=== PATIENT | female | born 1980 | race Caucasian/White ===

== ENCOUNTER 2020-01-04 08:28 | Emergency (ER) | payer BC ==
[~2020-01-04] VITALS: Ht 162.6 cm; Wt 80.7 kg
[2020-01-04] MEDS ORDERED: KETOROLAC TROMETHAMINE 60 MG/2 ML VIAL IM ONE (09:15)
--- NOTE | 2020-01-04 10:17 | Diagnostic Imaging Report ---
History: Neck and arm pain Comparison studies: None Technique: Axial images were obtained through the cervical region. Coronal and sagittal images reconstructed from the axial data. Dose modulation, iterative reconstruction, and/or weight based adjustment of the mA/kV was utilized to reduce the radiation dose to as low as reasonably achievable. Intravenous contrast: None Findings: Atlantoaxial articulation: Intact Alignment: Straightening of the usual cervical lordotic curvature, possibly positional. Cervicomedullary junction: No abnormalities. Patent foramen magnum. Soft tissues: No gross abnormalities. Vertebrae: No fractures, neoplasm or infection. Degenerative changes: C2-C3: Patent canal and foramina. C3-C4: Mild facet arthrosis. Patent canal and foramina. C4-C5: Patent canal and foramina. C5-C6: Mildly degenerated disc. Small disc osteophyte complex indents the thecal sac and results in only mild canal canal stenosis. Bilateral uncovertebral arthrosis without significant foraminal stenosis. C6-C7: Mildly degenerated disc. Small disc osteophyte complex indents the thecal sac and results in only mild canal stenosis. Bilateral uncovertebral arthrosis mild foraminal stenosis on the left. C7-T1: Patent canal and foramina. IMPRESSION: 1. No acute osseous abnormalities. 2. Mildly degenerated C5-C6 and C6-C7 discs. 3. Mild degenerative foraminal stenosis on the left at C6-C7. Cannot exclude ligament, spinal cord and or vascular abnormalities on the basis of this examination. Signed by: Dr. Emanuel Rivas M.D. on 01/04/2020 10:13 AM
--- NOTE | 2020-01-04 10:22 | Diagnostic Imaging Report ---
EXAMINATION: SHOULDER RIGHT COMPLETE INDICATION: Shoulder pain COMPARISON: None FINDINGS: No acute fracture or dislocation. Alignment is anatomic. Soft tissues appear unremarkable. No substantial degenerative change. The visualized portions of the right lung are clear. IMPRESSION: No acute osseous injury. Signed by: Rose Wynne MD on 01/04/2020 10:18 AM
[2020-01-04] MEDS ORDERED: NAPROXEN250 MG PO (10:57)
[2020-01-04] MEDS ORDERED: ROBAXIN-750750 MG PO (10:57)
== END 2020-01-04 11:27 | disposition home or self-care (01) ==
LOC: ER 08:28
DX: M54.12 Radiculopathy, cervical region (principal); M25.511 Pain in right shoulder
CPT/HCPCS: 72125; 81025; 99284; J1885

== ENCOUNTER 2020-01-21 05:30 | Observation (INO) | payer BC, OTHER ==
[2020-01-19 12:02] LABS: BASOPHILS # (AUTO) 0.1 (0.0-0.1); BASOPHILS % 1.1 % (0.0-1.0); EOSINOPHILS # (AUTO) 0.2 (0.0-0.4); EOSINOPHILS % 2.6 % (0.0-6.0); HEMATOCRIT 39.8 % (34.2-44.1); HEMOGLOBIN 13.4 g/dL (12.0-16.0); LYMPHOCYTES # (AUTO) 2.3 (1.0-3.2); LYMPHOCYTES % 32.2 % (18.0-39.1); MEAN CORPUSCULAR HEMOGLOBIN 31.2 pg (28-32); MEAN CORPUSCULAR HGB CONC 33.7 g/dL (31-35); MEAN CORPUSCULAR VOLUME 92.6 fL (81-99); MONOCYTES # (AUTO) 0.6 (0.2-0.8); MONOCYTES % 8.3 % (4.4-11.3); NEUTROPHILS # (AUTO) 3.9 (2.1-6.9); NEUTROPHILS % 55.5 % (38.7-80.0); PLATELET COUNT 311 x10e3/uL (140-360); RED CELL DISTRIBUTION WIDTH 12.4 % (11.7-14.4)
--- NOTE | 2020-01-19 12:13 | Diagnostic Imaging Report ---
EXAM: CHEST 2 VIEWS DATE: 01/19/2020 11:30 AM INDICATION: Preoperative evaluation COMPARISON: None FINDINGS: The trachea is midline. The lungs are symmetrically expanded without evidence for large focal consolidation, pneumothorax, or significant pleural effusion. The cardiomediastinal silhouette and pulmonary vasculature are within normal limits. No acute osseous abnormality is identified. The surrounding soft tissues are unremarkable. IMPRESSION: No acute cardiopulmonary process identified. Signed by: Dr. Raymundo Holguin MD on 01/19/2020 12:10 PM
[2020-01-19 12:15] LABS: INR 0.87; PROTHROMBIN TIME 12.3 seconds (11.9-14.5)
[2020-01-19 12:16] LABS: PARTIAL THROMBOPLASTIN TIME 25.1 seconds (23.8-35.5)
[2020-01-19 12:20] LABS: ANION GAP 12.4 mmol/L (8-16); BLOOD UREA NITROGEN 16 mg/dL (7-26); BUN/CREATININE RATIO 22 (6-25); CALCIUM 9.4 mg/dL (8.4-10.2); CARBON DIOXIDE 26 mmol/L (22-29); CHLORIDE 105 mmol/L (98-107); CREATININE, SERUM 0.74 mg/dL (0.57-1.11); EST GLOMERULAR FILTRATION RATE > 60 ML/MIN (60-); GLUCOSE 84 mg/dL (74-118); POTASSIUM 4.4 mmol/L (3.5-5.1); SODIUM 139 mmol/L (136-145)
[~2020-01-21] VITALS: Ht 162.6 cm; Wt 83.0 kg
[~2020-01-21 05:30] MED LIST: NAPROXEN250 MG PO; ROBAXIN-750750 MG PO
--- OUTSIDE RECORDS SUMMARY | 2020-01-21 05:42 | XMS REPORT ---
Author Author [facility] t Organization [facility] Address Unknown Phone Unavailable Care Team Providers Care Maintenance Mechanic Name Role Phone NONSTAFF PP Unavailable SHARDA DAWKINS Unavailable Unavailable SANDHIR, AMBICA Unavailable Unavailable Payers Payer Name Policy Type Policy Number Effective Date Expiration D ate [employer] [place] Ppo [id number] Problems This patient has no known problems. Allergies, Adverse Reactions, Alerts This patient has no known allergies or adverse reactions. Medications Ordered Medication Name Filled Medication Name Start Date Stop Da te Current Medication? Ordering Clinician Indication Dosage Frequency Signature (SIG) Comments Components Methocarbamol (Robaxin-750) 750 Mg Tablet Methocarbamo l (Robaxin-750) 750 Mg Tablet 2020-01-04 00:00:00 Yes Ambica Sandhir Do 750 Every 8 Hours as needed for Muscle Spasms Naproxen 250 Mg Tablet Naproxen 250 Mg Tablet 2020-01-04 00:00:00 Yes Ambica Sandhir Do 250 Every 4 Hours azithromycin 1 gram oral packet 1 g PO x1 dose azithro mycin 1 gram oral packet 1 g PO x1 dose No azithromycin 1 gra m oral packet 1 g PO x1 dose Bactrim DS 800 mg-160 mg tablet Take 1 t ablet every 12 hours by oral route for 3 days. Bactrim DS 800 mg-160 mg tablet Take 1 t ablet every 12 hours by oral route for 3 days. No 1 Q12H Bactrim DS 8 00 mg-160 mg tablet Take 1 tablet every 12 hours by oral route for 3 days. fluconazole 150 mg tablet Take 150 mg tablet by mouth x1 dose fluconazole 150 mg tablet Take 150 mg tablet by mouth x1 dose No fluconazole 150 mg tablet Take 150 mg tablet by mouth x1 dose Vital Signs Vital Name Observation Time Observation Value Comments BP Diastolic 2019-08-10 00:00:00 70 mm[Hg] Height 2019-08-10 00:00:00 64 [in_i] BP Systolic 2019-08-10 00:00:00 105 mm[Hg] Body Weight 2019-08-10 00:00:00 179.6 [lb_av] Procedures and Interventions Procedure Date / Time Performed Performing Clinici an Computed tomography of cervical spine without contrast 01-03 00:00:00 SUDHAKAR RODRIGUEZ Caesarean Section 2008-09-23 00:00:00 Caesarean Section 2003-09-23 00:00:00 [employer] Surgery (Gynecology) 2001-09-23 00:00:00 Plan of Care Planned Activity Planned Date Comments Encounters Start Date/Time End Date/Time Encounter Type Admission Type Attendi [facility] Care Department Encounter ID 2020-01-04 08:28:00 2020-01-04 11:27:00 Departed Emergency Room 1 SUDHAKAR RODRIGUEZ [facility] [id number] 2019-08-10 00:00:00 2019-08-10 00:00:00 Clark Rodarte, PULMONARY DISEASE SPECIALIST : [address], [address] [address], Ph. [facility] [id number] Results Test Description Test Time Test Comments Text Results Atomic Results Result Comments CHEST 2 VIEWS 2020-01-19 12:09:00 [place] [address] Patient Name: NICOLE PEARCE MR #: [id number] : 1980 Age/Sex: 39/F Req #: [id number] Adm Physician: Ordered by: SHARDA DAWKINS MD Report #: [id number] Location: OR Room/Bed: Procedure: [id number] DX/CHEST 2 VIEWS Exam Date: 01/19/20 Exam Time: 1130 REPORT STATUS: Signed EXAM: CHEST 2 VIEWS DATE: 01/19/2020 11:30 AM INDICATION: Preoperative evaluation COMPARISON: None FINDINGS: The trachea is midline. The lungs are symmetrically expanded without evidence for large focal consolidation, pneumothorax, or significant pleural effusion. The cardiomediastinal silhouette and pulmonary vasculature are within normal limits. No acute osseous abnormality is identified. The surrounding soft tissues are unremarkable. IMPRESSION: No acute cardiopulmonary process identified. Signed by: Dr. Raymundo Holguin MD on 01/19/2020 12:10 PM Dictated By: RAYMUNDO HOLGUIN MD 1210 Transcribed By: GABRIELLA on 01/19/20 1210 COPY TO: SHARDA DAWKINS MD SHOULDER RIGHT COMPLETE 2020-01-04 10:18:00 [place] [address] Patient Name: NICOLE PEARCE MR #: [id number] : 1980 Age/Sex: 39/F Req #: [id number] Adm Physician: Ordered by: SUDHAKAR RODRIGUEZ DO Report #: [id number] Location: ER Room/Bed: Procedure: [id number] DX/SHOULDER RIGHT COMPLETE Exam Date: 01/04/20 Exam Time: 0950 REPORT STATUS: Signed EXAMINATION: SHOULDER RIGHT COMPLETE INDICATION: Shoulder pain COMPARISON: None FINDINGS: No acute fracture or dislocation. Alignment is anatomic. Soft tissues appear unremarkable. No substantial degenerative change. The visualized portions of the right lung are clear. IMPRESSION: No acute osseous injury. Signed by: Raeann Curiel MD on 01/04/2020 10:18 AM Dictated By: RAEANN CURIEL MD 1018 Transcribed By: GABRIELLA on 01/04/20 1018 COPY TO: SUDHAKAR RODRIGUEZ DO CT CERVICAL SPINE WO 2020-01-04 10:02:00 [place] [address] Patient Name: NICOLE PEARCE MR #: [id number] : 1980 Age/Sex: 39/F Req #: [id number] Adm Physician: Ordered by: SUDHAKAR RODRIGUEZ DO Report #: [id number] Location: ER Room/Bed: Procedure: [id number] CT/CT CERVICAL SPINE WO Exam Date: 01/04/20 Exam Time: 0930 REPORT STATUS: Signed History: Neck and arm pain Comparison studies: None Technique: Axial images were obtained through the cervical region. Coronal and sagittal images reconstructed from the axial data. Dose modulation, iterative reconstruction, and/or weight based adjustment of the mA/kV was utilized to reduce the radiation dose to as low as reasonably achievable. Intravenous contrast: None Findings: Atlantoaxial articulation: Intact Alignment: Straightening of the usual cervical lordotic curvature, possibly positional. Cervicomedullary junction: No abnormalities. Patent foramen magnum. Soft tissues: No gross abnormalities. Vertebrae: No fractures, neoplasm or infection. Degenerative changes: C2-C3: Patent canal and foramina. C3-C4: Mild facet arthrosis. Patent canal and foramina. C4-C5: Patent canal and foramina. C5-C6: Mildly degenerated disc. Small disc osteophyte complex indents the thecal sac and results in only mild canal canal stenosis. Bilateral uncovertebral arthrosis without significant foraminal stenosis. C6-C7: Mildly degenerated disc. Small disc osteophyte complex indents the thecal sac and results in only mild canal stenosis. Bilateral uncovertebral arthrosis mild foraminal stenosis on the left. C7-T1: Patent canal and foramina. IMPRESSION: 1. No acute osseous abnormalities. 2. Mildly degenerated C5-C6 and C6-C7 discs. 3. Mild degenerative foraminal stenosis on the left at C6-C7. Cannot exclude ligament, spinal cord and or vascular abnormalities on the basis of this examination. Signed by: Dr. Karissa Rivas M.D. on 01/04/2020 10:13 AM Dictated By: KARISSA RIVAS MD 1013 Transcribed By: GABRIELLA on 01/04/20 1013 COPY TO: SUDHAKAR RODRIGUEZ DO Urine Test 2020-01-04 09:39:00 Urine Test (test code = 2106-3) NEGATIVE NEGATI VE Urinalysis complete W Reflex Culture panel - [id number] 08:12:00* Test Item Value Reference Range Comments color (test code = color) yellow yellow appearance (test code = appearance) cloudy clear specific gravity (test code = specific gravity) 1.021 1.001-1.035 pH (test code = pH) 8.0 5.0-8.0 glucose (test code = glucose) negative negative bilirubin (test code = bilirubin) negative negative ketones (test code = ketones) 1+ negative occult blood (test code = occult blood) negative negative protein (test code = protein) negative negative nitrite (test code = nitrite) negative negative leukocyte esterase (test code = leukocyte esterase) 1+ negative WBC (test code = WBC) 0-5 < or = 5 RBC (test code = RBC) 0-2 < or = 2 squamous epithelial cells (test code = squamous epithelial c ells) 20-27 < or = 5 bacteria (test code = bacteria) none seen none seen hyaline cast (test code = hyaline cast) none seen none see n Bacteria identified in Urine by [id number] 08:12:00* Test Item Value Reference Range Comments reflexive urine culture (test code = reflexive urine c ulture) culture indicated - results to follow Bacteria identified in Urine by [id number] 08:12:00* Test Item Value Reference Range Comments culture, urine, routine (test code = culture, urine, routine) se e note Chlamydia trachomatis+Neisseria gonorrhoeae rRNA [Presence] in Urine by DNA prob [id number] 17:15:00* Test Item Value Reference Range Comments chlamydia trachomatis (urine) molecular assay (test code = chlamydia trachomatis (urine) molecular assay) detected neisseria gonorrhoeae (urine) molecular assay (test code = neisseria gonorrhoeae (urine) molecular assay) not detected Urinalysis macro (dipstick) panel - [id number] 16:42:00* Test Item Value Reference Range Comments Color Color (test code = Color Color) yellow Color Appearance (test code = Color Appearance) clear Color Glucose (test code = Color Glucose) negative Color Bilirubin (test code = Color Bilirubin) small Color Ketones (test code = Color Ketones) trace Color Specific [place] (test code = Color Specific [place]) 1.02 0 Color Blood (test code = Color Blood) trace Color PH (test code = Color PH) 8.5 Color Protein (test code = Color Protein) negative Color Urobilinogen (test code = Color Urobilinogen) 4 Color Nitrites (test code = Color Nitrites) negative Color Leukocytes (test code = Color Leukocytes) small
--- OUTSIDE RECORDS SUMMARY | 2020-01-21 05:42 | XMS REPORT | Encounter Summary ---
Author Organization Unknown Address [address] [place] [address] Phone [phone] Care Team Providers Care Silver Brazer Name Role Phone Dr. Ayana [facility] 3 [phone] Reason for Visit vaginal problem Instructions 1. Exposure to Chlamydia trachomatis azithromycin 1 gram oral packet 2. Exposure to blood and/or body fluid unlisted lab - HIV-1/2 Ag and abs scre en, 4TH gen. w/rflx (46961) RPR (rapid plasma reagin), quantitativ e, serum herpes simplex virus 2 Ab, IgG, QL, IA , serum or plasma hepatitis C virus RNA, quant, PCR, ser um or plasma HBsAg (hepatitis B surface Ag), confir mation, serum CT + NG RNA, urine 3. Urinary tract infectious disease Bactrim DS 800 mg-160 mg tablet urinalysis complete, reflex culture 4. Dysuria urinalysis, dipstick 5. Vaginal irritation fluconazole 150 mg tablet 6. Dyspareunia gynecology referral 7. Body mass index 30+ - obesity body mass index: care instructions learning about healthy weight Discussion Note: None recorded. Plan of Care Reminders Provider Appointments None recorded. Lab Unlisted Lab 08/10/2019 [facility] RPR (Rapid Plasma Reagin), Quantitative, Serum 1 10/10/2018 [facility] Herpes Simplex Virus 2 Ab, IgG, QL, IA, Serum or Plasma 08/10/2019 [facility] Hepatitis C Virus RNA, Quant, PCR, Serum or Plas ma 08/10/2019 [facility] HBsAg (Hepatitis B Surface Ag), Confirmation, Se rum 08/10/2019 [facility] CT + NG RNA, Urine 08/10/[address] [facility] Urinalysis, Dipstick 08/10/2019 [facility] Urinalysis Complete, Reflex Culture 08/10/2019 [facility] Referral Gynecology Referral 08/10/2019 [facility] Procedures None recorded. Surgeries None recorded. Imaging None recorded. Medications Name Start Date azithromycin 1 gram oral packet 1 g PO x1 dose Bactrim DS 800 mg-160 mg tablet Take 1 tablet every 12 hours by oral route for 3 days. fluconazole 150 mg tablet Take 150 mg tablet by mouth x1 dose Medications Administered None recorded. Vitals Height Weight BMI Blood Pressure 5 ft 4 in 179.6 lbs 30.8 kg/m2 105/70 mm[Hg] Results Lab Results Date Name Specimen Result Interpretation Description Value Range Status Address 08/10/2019 CT + NG RNA, Urine ABNORMAL Chlam ydia Trachomatis (Urine) Molecular Assay detected Final [facility] Laboratory: [address] Neisseria Gonorrhoeae (Urine) Molecul ar Assay not detected Final [facility] Laboratory: [address] 08/10/2019 Urinalysis Complete, Reflex Culture Normal Color yellow yellow Final [facility] Laboratory: [address] ABNORMAL Appearance cloudy clear Final [facility]: [address] Normal Specific [place] 1.021 1.001-1.035 Final [facility] Laboratory: [address] Normal Ph 8.0 5.0-8.0 Final [facility] Laboratory: [address] Normal Glucose negative negative Final [facility]: [address] Normal Bilirubin negative negative Final [facility] Laboratory: [address] ABNORMAL Ketones 1+ negative Final [facility]: [address] Normal Occult Blood negative negative Final [facility] Laboratory: [address] Normal Protein negative negative Final [facility]: [address] Normal Nitrite negative negative Final [facility] Laboratory: [address] ABNORMAL Leukocyte Esterase 1+ negative Final [facility] Laboratory: [address] Normal Wbc 0-5 /hpf < or = 5 /hpf Final [facility] Laboratory: [address] Normal Rbc 0-2 /hpf < or = 2 /hpf Final [facility] Laboratory: [address] [place] [address], [place] ABNORMAL Squamous Epithelial Cells 20-27 /h pf < or = 5 /hpf [facility] Laboratory: [address] Normal Bacteria none seen /hpf none seen /h pf Final [facility]: [address] Normal Hyaline Cast none seen /lpf none see n /lpf [facility] Laboratory: [address] [place] [address], [place] 08/10/2019 Culture, Urine Reflexive Uri ne Culture culture indicated - results to follow [facility]: [address] [place] [address], [place] 08/10/2019 Culture, Urine Culture, Urine, Routine see note [facility] Laboratory: [address] [place] [address], [place] 08/10/2019 Urinalysis, Dipstick Color Color yellow [facility]: [address], [place] Color Appearance clear [facility]: [address], [place] Color Glucose negative [facility]: [address], [place] Color Bilirubin small [facility] [address] [place] Color Ketones trace [facility] [address] [place] Color Specific [place] 1.020 [facility] [address] [place] Color Blood trace [facility] [address], [place] Color PH 8.5 [facility] [address] [place] Color Protein negative [facility] [address] [place] Color Urobilinogen 4 [facility] [address] [place] Color Nitrites negative [facility]: [address], [place] Color Leukocytes small [facility]: [address], [place] Allergies Code Code System Name Reaction Severity Status Onset NKDA Problems None recorded. Procedures Date Name Performed by 09/23/2008 Caesarean Section Information not avai lable 09/23/2003 Caesarean Section Information not avai lable 09/23/2001 [facility] Surgery (Gynecology) Information not available Vaccine List None recorded. Social History Tobacco Smoking Status Never Smoker Past Encounters 08/10/2019 Exposure to Chlamydia Trachomatis; Exposure to Blood And/or Body Fluid; Urinary Tract Infectious Disease; Dysuria; Vaginal Irritation; Dyspareunia; Body Mass Index 30+ - Obesity Clark Rodarte, [employer] SMITH: [address], [address], [place] [address], Ph. History of Present Illness Vaginal/Vulvar Problem Reported By: Patient HPI: Duration: present for >1 mon . Quality: itching, painful, tender, irritation, dry, multiple lesions/sores. Context: sexually active, new sexual partner, history of recurrent vaginal infections; IUD - Mirana (2nd one). Associated Symptoms: vaginal itching, vaginal irritation, vaginal pain, vulvar pain Sexually Transmitted Infecti on Reported By: Patient HPI: Severity: pain level 6/10. C ontext: last sexual activity:, last sexual partner: male partner. Modifying Factors: nothing gives relief. Associated Symptoms: dysuria, painful intercourse, pruritus, urethral discharge white, urethral itch, urge incontinence Note:Pt presents with reports of vaginal discharge, painful intercourse, and vaginal pain when urinating. Review of Systems:ROS as noted in the HPI Review of Systems None recorded. Physical Exam General Adult Exam (Female) Reported By: Patient Constitutional: General Appearance: healthy- appearing, well-nourished, well- developed. Level of Distress: NAD. Ambulation: ambulating normally Psychiatric: Insight: good judgement. Men rene Status: active and alert, normal mood, normal affect. Orientation: to time, to place, to person Head: Head: normocephalic, atrauma tic Eyes: Lids and Conjunctivae: non-i njected, no discharge, no pallor. Pupils: PERRLA. Sclerae: non-icteric ENMT: Ears: no lesions on external ear, EACs clear, TMs clear. Nose: no lesions on external nose, nares patent. Lips, Teeth, and Gums: no mouth or lip ulcers, normal dentition. Oropharynx: moist mucous membranes Neck: Neck: supple, trachea midlin e, no masses, FROM. Lymph Nodes: no cervical LAD, no supraclavicular LAD, no axillary LAD. Thyroid: no enlargement, non- tender, no nodules Lungs: Respiratory effort: no dyspn ea. Auscultation: breath sounds normal, good air movement, CTA except as noted Cardiovascular: Heart Auscultation: RRR, nor mal S1, normal S2, no murmurs, no rubs Abdomen: Bowel Sounds: normal. Inspec tion and Palpation: soft, non-distended, no tenderness, no rebound tenderness, no masses. Liver: non-tender. Spleen: non-tender Female : External genitalia: no lesio ns. Vagina: abnormal discharge, dry mucosa, tenderness. Cervix: cervical motion tenderness Skin: Inspection and palpation: no rash, no lesions, no abnormal nevi, good turgor
[2020-01-21] MEDS ORDERED: CEFAZOLIN SOD 1 GM/NS 50ML 100 ML IV ONE (06:02)
[2020-01-21] MEDS ORDERED: BACITRACIN 50,000 UNIT VIAL ONE (06:53)
[2020-01-21] MEDS ORDERED: THROMBIN FOR SOLN 5,000 UNIT VIAL ONE (06:53)
[2020-01-21] MEDS ORDERED: BUPIVACAINE 0.5%/EPI 30 ML SDV INJ ONE (06:53)
[2020-01-21] MEDS ORDERED: LIDOCAINE HCL (LTA) 4 ML SOLN ONE (07:25)
[2020-01-21] MEDS ORDERED: ACETAMINOPHEN 1000 MG/100 ML 100 ML IV ONE (07:25)
[2020-01-21] MEDS ORDERED: IBUPROFEN 800MG/ 200ML 200 ML IV ONE (07:25)
[2020-01-21] MEDS ORDERED: MORPHINE SULFATE INJ 4 MG/ML INJ 1ML IM PRN (09:15)
[2020-01-21] MEDS ORDERED: MAGNESIUM/ALUMINUM/SIMETHICONE 30 ML UDC PO PRN (09:15)
[2020-01-21] MEDS ORDERED: CARISOPRODOL 350 MG TAB PO PRN (09:15)
[2020-01-21] MEDS ORDERED: PROMETHAZINE HCL (IM) 25 MG/ML VIAL IM PRN (09:15)
[2020-01-21] MEDS ORDERED: ZOLPIDEM TARTRATE 5 MG TAB PO PRN (09:15)
[2020-01-21] MEDS ORDERED: ACETAMINOPHEN 325 MG TAB PO PRN (09:15)
[2020-01-21] MEDS ORDERED: CEPACOL SORE THROAT LOZENGES PO PRN (09:15)
[2020-01-21] MEDS ORDERED: FENTANYL CITRATE/PF 100MCG/2 ML INJ ONE ×2 (09:27→18:16)
[2020-01-21] MEDS ORDERED: HYDROMORPHONE 1MG/1ML INJ ONE (10:41)
--- NOTE | 2020-01-21 11:10 | NUR ---
received to rm 107 aaox3, pt in stable condition, denies pain at this time, dsg to cervical c/d/i, cervical hard collar in place, updated on poc voiced understanding, ivf infusing to l hand 20 g no ss of infiltration noted, no other co voiced call light in reach will continue to monitor
[2020-01-21 11:25] VITALS: BP 118/74
--- NOTE | 2020-01-21 12:25 | Operative Report ---
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 PROCEDURES: 1. C5-6 anterior cervical diskectomy and microsurgical osteophyte resection and allograft fusion, 40701. 2. C6-7 anterior cervical diskectomy and microsurgical osteophyte resection and allograft fusion, 36645. 3. Preparation of tricortical iliac crest allograft, 53693. 4. C5-C6-C7 anterior cervical plating with Synthes CSLP small stature plate, [id number]. ANESTHESIA: General. INDICATIONS: The patient is a 39-year-old woman, who presents with C5-6 right-sided disk herniation, superimposed on C5-6 and C6-7 spondylosis, symptomatic with intractable right C6 radiculopathy. She was taken to surgery for two-level anterior cervical decompression and fusion. PROCEDURE IN DETAIL: After induction of general anesthesia, the patient was placed on the operating table in supine position. The right side of the neck was prepped and draped in sterile fashion. The fluoroscopic C-arm was positioned in cross-table lateral orientation. A small transverse incision was created along the skin crease on the right side of neck, superimposed on the C6 vertebral body as determined by fluoroscopy. The platysma was divided in line with the incision. A subplatysmal dissection was carried out and avascular plane of dissection was developed medially to the sternocleidomastoid muscle and was followed medial to the carotid sheath to the anterior border of cervical spine. The deep cervical fascia was opened. The esophagus was retracted to the left. The attachments of longus colli muscles to the anterolateral aspects of vertebral bodies of C5, C6, and C7 were divided. The anterior longitudinal ligament was resected. [place] posts were inserted in C5 and C7. The [place] distractor was used to distract both disk spaces simultaneously. The anterior annulus of disk was incised with a #11 blade. The contents of both disks were thoroughly evacuated with angled curettes and pituitary rongeurs. The posterior osteophytes were meticulously drilled with a 2 mm cutting bur on a high-speed drill until they were completely removed. The posterior annulus of the disk, herniated disk material, and the posterior longitudinal ligament were resected layer by layer until the dura was fully exposed and decompressed. The medial aspects of the uncinate processes were resected bilaterally to further expose any compressed origins of the corresponding nerve roots. On the right side at C5-6, a large disk herniation was retrieved and removed from the right C6 neural foramen. Excellent decompression was thus achieved. The wound was copiously irrigated with bacitracin solution. Hemostasis was secured. The endplates were decorticated in preparation for fusion. Two pieces of tricortical iliac crest allograft were cut to the size and shapes of the disk spaces and were inserted into disk spaces under distraction and fluoroscopic guidance. The distraction was released and distraction posts were removed. A Synthes CSLP small stature anterior cervical plate measuring 32 mm was selected and was affixed to vertebral bodies of C5, C6, and C7 with three pairs of 14 x 4.35 mm screws. All screw holes were first drilled and tapped on the lateral fluoroscopic guidance. All screws were locked with the appropriate locking screws. An excellent construct was obtained. The wound was copiously irrigated with bacitracin solution. Meticulous hemostasis was secured. Retraction was removed. The platysma was closed with 3-0 Vicryl sutures. The skin was closed with 4-0 Monocryl sutures in subcuticular fashion. Steri-Strips and dressing were applied. The patient was awakened, extubated, and taken to postanesthesia care unit in stable condition. No intraoperative complications were encountered. Estimated blood loss was 30 mL. Josef Burks MD PP/DENISE /[id number]
[2020-01-21 13:23] VITALS: BP 118/74
[2020-01-21] MEDS: NAPROXEN 250 MG TAB PO SCH ×3 (14:00→22:00)
--- NOTE | 2020-01-21 14:34 | Diagnostic Imaging Report ---
OR Fluoroscopy: IMPRESSION: Fluoroscopy service provided in the OR. Interpretation not requested. Signed by: Rudy Ott MD on 01/21/2020 2:31 PM
[2020-01-21] MEDS: OXYCODONE/ACETAMINOPHEN 5-325 1 EACH TABLET PO PRN ×2 (14:54→19:44)
[2020-01-21] MEDS: LACTATED RINGER'S 1,000 ML IV SCH ×2 (14:54→17:35)
[2020-01-21] MEDS: CEFAZOLIN SOD 1 GM/NS 50ML 50 ML IV SCH ×2 (14:54→23:24)
[2020-01-21 16:34] VITALS: BP 113/58
[2020-01-21] MEDS ORDERED: LIDOCAINE HCL 2% JELLY 5 ML TUBE ONE (18:16)
[2020-01-21] MEDS ORDERED: LIDOCAINE HCL 2% LOCAL INJ 5 ML SDV VIAL INJ ONE (18:16)
[2020-01-21] MEDS ORDERED: PROPOFOL IV EMULSION 10 MG/ML 20 ML VIAL ONE (18:16)
[2020-01-21] MEDS ORDERED: ROCURONIUM BROMIDE 10 MG/ML 5ML VIAL IV ONE (18:16)
[2020-01-21] MEDS ORDERED: SEVOFLURANE INHAL SOLN 250 ML PEN BTL ONE (18:16)
[2020-01-21] MEDS ORDERED: DEXAMETHASONE SOD PHOS INJ 4 MG/ML VIAL ONE (18:16)
[2020-01-21] MEDS ORDERED: ONDANSETRON HCL INJ 2MG/ML 2ML 2 MG/ML VIAL ONE (18:16)
[2020-01-21] MEDS ORDERED: MIDAZOLAM HCL 2 MG/2 ML VIAL ONE (18:16)
[2020-01-21 19:40] VITALS: BP 113/58
--- NOTE | 2020-01-21 19:40 | NUR ---
PATIENT RESTING IN BED AOX3, NO SIGNS OF DISTRESS NOTED. IV FLUIDS ARE RUNNING AT ORDERED RATE AND PATIENT VOICES PAIN AT A LEVEL OF 7 AND WAS MEDICATED ORDERED. SCD'S ARE INTACT. BED IS IN LOWEST POSITION, BOTH SIDE RAILS ARE UP, CALL LIGHT IS WITHIN EASY REACH, WILL CONTINUE TO MONITOR.
[2020-01-21 20:00] VITALS: BP 109/69
[2020-01-21] MEDS: ONDANSETRON HCL INJ 2MG/ML 2ML 2 MG/ML VIAL IV PRN (23:24)
[2020-01-21] MEDS: HYDROMORPHONE 2MG/ML 2 MG/ML ML IV PRN (23:24)
[2020-01-22] VITALS: BP 101/56
[2020-01-22] MEDS: LACTATED RINGER'S 1,000 ML IV SCH (01:54)
[2020-01-22] MEDS: NAPROXEN 250 MG TAB PO SCH ×3 (02:00→10:25)
[2020-01-22 04:00] VITALS: BP 111/64
[2020-01-22] MEDS: HYDROMORPHONE 2MG/ML 2 MG/ML ML IV PRN (06:04)
[2020-01-22] MEDS: CEFAZOLIN SOD 1 GM/NS 50ML 50 ML IV SCH (06:04)
[2020-01-22] MEDS: ONDANSETRON HCL INJ 2MG/ML 2ML 2 MG/ML VIAL IV PRN ×2 (06:05→10:25)
--- NOTE | 2020-01-22 07:05 | Diagnostic Imaging Report ---
C-SPINE 2 VIEWS AP LATERAL - 2 views HISTORY: Pain. COMPARISON: None available. FINDINGS: Bones: The cervical spine is visualized from C1 to C7 on the lateral view. No acute displaced fracture. No significant listhesis. Anterior instrumented fusion from C5 to C7 via a plate and screw construct. The hardware appears intact. Joints: Mild multilevel disc space narrowing. Soft tissues: The soft tissues appear unremarkable. IMPRESSION: Lower cervical spine surgical change. No acute osseous abnormality. Signed by: Luis E Aguilar MD on 01/22/2020 7:01 AM
[2020-01-22 07:48] VITALS: BP 91/54
[2020-01-22 09:02] VITALS: BP 91/54
--- NOTE | 2020-01-22 09:35 | NUR ---
Pt felt "nauseous." Inspector Of Dredging provided hospitality and information on how to reach movie projectionist if needed. ALEC ARMENDARIZ Inspector Of Dredging Spiritual Care Department O: [phone]
[2020-01-22] MEDS: OXYCODONE/ACETAMINOPHEN 5-325 1 EACH TABLET PO PRN (10:20)
[2020-01-22] MEDS ORDERED: ULTRAM50 MG PO (11:06)
--- NOTE | 2020-01-22 11:40 | NUR ---
AAOX3. ACYANOTIC. RESTING IN BED AWAITING ON RIDE FROM HOSPITAL. PATIENT INSTRUCTED TO USE CALL LIGHT FOR ASSISTANCE WHEN LEARNING THAT HER RIDE IS OUTSIDE FRONT LOBBY. VERBALIZED UNDERSTANDING.
[2020-01-22 11:57] VITALS: BP 98/58
== END 2020-01-22 12:30 | disposition home or self-care (01) ==
LOC: OR 05:30 → PACU V 09:09 → MED/SURG 10:48
PROVIDERS: ADMIT Neurological Surgery; ATTEND Neurological Surgery
DX: M50.120 Mid-cervical disc disorder, unspecified level (principal)
CPT/HCPCS: 20931; 22551; 22552; 22845; 36415; 71046; 72040; 77003; 80048; 81025; 85025; 85610; 85730; 86850; 86900; 87635; 88304; 93005; C1713 ×4; C1763; G0378 ×2; J0131; J0690 ×2; J1100; J1170 ×3; J2001 ×2; J2250; J2405 ×2; J2704; J3010; J7121 ×2

== ENCOUNTER → 2020-02-18 | Outpatient (CLI) | payer BC ==
[~2020-02-18] MED LIST changes: +ULTRAM50 MG PO
--- NOTE | 2020-02-18 11:19 | Diagnostic Imaging Report ---
Radiographs of the cervical spine 4 views with flexion and extension HISTORY: Pain COMPARISON: 01/22/2020 FINDINGS: Bones: The cervical spine is visualized from C1 to C7 on the lateral view. No acute displaced fracture. No significant listhesis. No subluxation on the flexion or extension images. Anterior instrumented fusion from C5 to C7 via a plate and screw construct. The hardware appears intact. Joints: Mild multilevel disc space narrowing. Soft tissues: The soft tissues appear unremarkable. IMPRESSION: Lower cervical spine surgical change. No acute osseous abnormality. Signed by: Dr. Robel Jimenez M.D. on 02/18/2020 11:15 AM
== END ==
LOC: RAD 10:19
PROVIDERS: ATTEND Neurological Surgery
DX: M50.20 Other cervical disc displacement, unspecified cervical region (principal); M43.22 Fusion of spine, cervical region
CPT/HCPCS: 72050